=== PATIENT | female | born 1970 | race Two or more races ===

== ENCOUNTER 2017-05-10 12:23 | Emergency (ER) | payer MEDICAID ==
[~2017-05-10] VITALS: Ht 167.6 cm; Wt 54.4 kg
[~2017-05-10 12:23] MED LIST: IBUPROFEN600 MG PO
[2017-05-10] MEDS ORDERED: DiphenhydrAMINE 25mg/10ml Elixir ORAL ONE (13:15)
[2017-05-10] MEDS ORDERED: Clindamycin 150mg cap ORAL ONE (13:15)
[2017-05-10] MEDS ORDERED: Metoclopramide 10mg/10ml Liq ORAL ONE (13:15)
[2017-05-10] MEDS ORDERED: BENADRYL25 MG ORAL (13:56)
[2017-05-10] MEDS ORDERED: CLINDAMYCIN HC300 MG ORAL (13:56)
[2017-05-10] MEDS ORDERED: IBUPROFEN600 MG ORAL (13:56)
[2017-05-10] MEDS ORDERED: BACITRACIN15 GM TOPIC (13:56)
[2017-05-10 14:00] VITALS: BP 120/80
--- NOTE | 2017-05-10 15:37 | Emergency Room Report ---
History of Present Illness General Chief Complaint: Skin Rash/Abscess Source: Patient Present Illness HPI The patient is a 46-year-old female presenting for possible insect bite of the left leg which occurred 4 days ago. Note that the triage report is incorrect. She states that she noticed a red lesion on the left inner thigh 4 days ago which has progressed and is now an open wound. Pain has also increased and is a 7/10 dull ache to the area. Worse with touch. She denies any fever or chills. She saw her primary doctor yesterday who prescribed her Augmentin and then the patient began to feel dizzy and exhibit other reactions including nasal congestion and headache. She denies any known allergies. 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 Review of Systems All Other Systems: negative except mentioned in HPI Physical Exam Vital Signs Date Time Temp Pulse Resp B/P (MAP) Pulse Ox O2 Delivery O2 Flow Rate FiO2 05/10/17 13:07 97.8 78 16 120/80 98 Room Air 97.9 Sp02 EP Interpretation: reviewed, normal General Appearance: no apparent distress, alert, GCS 15, non-toxic Head: normocephalic, atraumatic Eyes: bilateral eye normal inspection, bilateral eye PERRL ENT: hearing grossly normal, normal pharynx, no angioedema, normal voice Neck: full range of motion, supple/symm/no masses Respiratory: chest non-tender, lungs clear, normal breath sounds, speaking full sentences Cardiovascular #1: regular rate, rhythm, no edema Musculoskeletal: back normal, gait/station normal, normal range of motion Neurologic: alert, oriented x3, responsive, motor strength/tone normal, sensory intact, speech normal Psychiatric: judgement/insight normal, memory normal, mood/affect normal, no suicidal/homicidal ideation Skin: rash, other - Left medial thigh has a 4 cm in diameter erythematous lesion with central opening and white discharge. No streaking or surrounding lesions. Medical Decision Making PA Attestation Dr. Bryant is my supervising physician. Patient management was discussed with my supervising physician Diagnostic Impression: Primary Impression: Insect bite Qualified Codes: W57.XXXA - Bitten or stung by nonvenomous insect and other nonvenomous arthropods, initial encounter ER Course The patient is a 46-year-old female presenting for possible insect bite of the left leg which occurred 4 days ago Ddx considered include but not limited to insect bite, contact dermatitis, eczema, cellulitis, abscess, allergic reaction PE: Vitals stable. NAD RRR Lungs CTA bilat Left medial thigh has a 4 cm in diameter erythematous lesion with central opening and white discharge. No streaking or surrounding lesions. The patient is given Benadryl and Reglan and is feeling better. She will stop using the Augmentin. She is given prescription for clindamycin as well as bacitracin. She will keep the wound clean and dry. ER precautions are given and will followup with her primary doctor Last Vital Signs Date Time Temp Pulse Resp B/P (MAP) Pulse Ox O2 Delivery O2 Flow Rate FiO2 05/10/17 14:00 97.8 16 120/80 98 Room Air 97.9 05/10/17 13:07 78 Status: improved Disposition: HOME, SELF-CARE Condition: Improved Scripts Bacitracin (Bacitracin) 28.4 Gm Oint...g. 1 APPLIC TOPIC THREE TIMES A DAY, #28 GM Prov: TERZIAN,BALBIR P.A. 05/10/17 Diphenhydramine Hcl* (BENADRYL*) 25 Mg Capsule 25 MG ORAL Q6H Y for Itching, #15 CAP Prov: TERZIAN,BALBIR P.A. 05/10/17 Ibuprofen* (MOTRIN*) 600 Mg Tablet 600 MG ORAL Q8H Y for For Pain, #30 TAB 0 Refills Prov: TERZIAN,BALBIR P.A. 05/10/17 Clindamycin Hcl (CLINDAMYCIN HCL) 300 Mg Capsule 300 MG ORAL TID, #21 CAP Prov: TERZIAN,BALBIR P.A. 05/10/17 Patient Instructions: Rash, Insect Bite Additional Instructions: I discussed my findings with the patient. All questions and concerns have been answered. Treatment and medication compliance have been addressed. I advised the patient that they need to follow up with PMD in 3-5 days. Return to ED if symptoms worsen, new symptoms arise, or if needed for any reason. Patient verbalized understanding of discharge instructions. Please return to the emergency department if you notice symptoms including increased redness, red streaks, fever, numbness, and/or worsening infection BALBIR VICK May 10, 2017 15:37
== END 2017-05-10 14:00 | disposition home or self-care (01) ==
LOC: EMR 13:00
DX: S71.152A Open bite, left thigh, initial encounter (principal); W57.XXXA Bitten or stung by nonvenomous insect and other nonvenomous arthropods, initial encounter; Y92.9 Unspecified place or not applicable
CPT/HCPCS: 99284